=== PATIENT | male | born 1970 | race Caucasian/White ===

== ENCOUNTER → 2020-08-16 06:25 | Outpatient (CLI) | payer OTHER, SELFPAY ==
--- NOTE | 2020-08-16 06:49 | MRI_ITS ---
STUDY: MRI RIGHT WRIST WITHOUT CONTRAST REASON FOR EXAM: Right carpal bone pain for 2 months, no specific injury. TECHNIQUE: Standardized fat and water weighted pulse sequences were obtained in all 3 orthogonal planes. COMPARISON: None. FINDINGS: Normal visualized distal radius and ulna. Normal distal radioulnar articulation (DRUJ). Normal triangular fibrocartilaginous complex (TFCC). 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 There is a small effusion of the midcarpal compartment of the wrist (inversion recovery axial images 20, 21). Normal pisotriquetral articulation. Normal visualized interosseous scapholunate ligament. Normal extensor tendons. There is mild flexor tenosynovitis proximal to the carpal tunnel (inversion recovery axial images 28-33). There is flexor tenosynovitis of the fourth digit at the level of the metacarpal (inversion recovery coronal images 9-15). There is mild flexor tenosynovitis of the fifth digit at the level of the distal metacarpal (inversion recovery coronal images 9, 10). Normal carpal tunnel with a normal median nerve. Normal carpometacarpal articulation of the thumb. There is mild arthrosis of the second carpometacarpal articulation with mild chondral thinning and subchondral cystic change (T2 sagittal image 23). Normal visualized metacarpal bones. There is a ganglion cyst at the palmar aspect of the distal radius (T2 sagittal images 22, 23) measuring 0.7 cm in length. 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 Flexor tenosynovitis. 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 Small effusion of the midcarpal compartment of the wrist. Ganglion cyst at the palmar aspect of the distal radius. Electronically Signed: Yash M. Garrett, MD at 8:55 EST Tel , Service support ,
== END ==
PROVIDERS: PCP Family Medicine; Referring Provider Family Medicine; Visit Provider Family Medicine
DX: M65.841 Other synovitis and tenosynovitis, right hand (principal)
CPT/HCPCS: 73221